=== PATIENT | male | born 1995 | race Asian ===

== ENCOUNTER 2019-11-18 09:24 | Outpatient (CLI) | payer OTHER ==
[~2019-11-18 09:24] MED LIST: ALBUTEROL2 MG/5 ML PO; AMOX875T8 PO; MEDROL DOSEPAK4 MG OR
== END 2019-11-18 19:39 | disposition home or self-care (01) ==
LOC: CT 09:24
DX: R10.33 Periumbilical pain (principal)
CPT/HCPCS: Q9963

== ENCOUNTER 2022-07-10 07:59 | Outpatient (CLI) | payer OTHER | END 2022-07-10 19:23 | disposition home or self-care (01) | LOC: US 07:59 | PROVIDERS: ATTEND Internal Medicine | DX: R10.12 Left upper quadrant pain (principal) ==